=== PATIENT | female | born 1985 | race African-American/Black ===

== ENCOUNTER 2021-02-09 18:24 | Outpatient (REF) | payer OTHER, SELFPAY ==
[2021-02-10 20:53] LABS: COVID-19 RT-PCR UVMMC Result Negative (Negative)
== END 2021-02-09 18:25 | disposition home or self-care (01) ==
LOC: LBN 18:24
PROVIDERS: Visit Provider Nurse Practitioner Family
DX: Z20.822 Contact with and (suspected) exposure to COVID-19 (principal)
CPT/HCPCS: U0003

== ENCOUNTER → 2022-05-17 13:04 | Outpatient (CLI) | payer OTHER, SELFPAY ==
--- NOTE | 2022-05-17 | DI.MRI_ITS ---
Exam(s) MR LOWER JOINT RT WO EXAM: MR LOWER JOINT RT WO CLINICAL HISTORY: RT KNEE PAIN SINCE 2018, WORSENING, M25.561. TECHNIQUE: Multiplanar multisequence MRI was performed. COMPARISON: No exams were available for comparison FINDINGS: BONES: There is no fracture or contusion pattern. JOINTS: Articular cartilage is unremarkable. No effusion is present. TENDONS: Extensor mechanism: Unremarkable. Medial retinaculum: Unremarkable. Lateral retinaculum: Unremarkable. Popliteus: Unremarkable. MUSCLES: Unremarkable. MENISCI: The medial meniscus is unremarkable. The lateral meniscus is unremarkable. SOFT TISSUES: Unremarkable. LIGAMENTS: Anterior Cruciate: Unremarkable. Posterior Cruciate: Unremarkable. Medial Collateral:Unremarkable. Lateral Collateral: Unremarkable. OTHER: IMPRESSION: 1. No evidence of a meniscal or ligament tear. 2. No osseous abnormality. The joint space is well maintained. DATA REPOSITORY:
== END ==
PROVIDERS: PCP Nurse Practitioner Family; Visit Provider Nurse Practitioner Family
DX: M25.561 Pain in right knee (principal)
CPT/HCPCS: 73721

== ENCOUNTER 2022-10-05 15:37 | Outpatient (REF) | payer OTHER, SELFPAY ==
[2022-10-05 20:59] LABS: Abs Immature Grans 0.01 10^3/uL (0.0-0.06); Absolute Basophil Count 0.03 10^3/uL (0.0-0.2); Absolute Eosinophil Count 0.17 10^3/uL (0.0-0.7); Absolute Lymphocyte Count 2.53 10^3/uL (1.2-3.4); Absolute Monocyte Count 0.37 10^3/uL (0.1-0.8); Absolute Neutrophil Count 2.34 10^3/uL (1.2-6.7); Basophils % 0.6; Eosinophils % 3.1; HCT 41.1 % (36.0-46.0); HGB 13.3 g/dL (11.2-15.7); Immature Grans % 0.2; Lymphocytes % 46.4; MCH 27.7 pg (27.0-33.0); MCHC 32.4 % (32.0-36.0); MCV 85 fL (80-95); MPV 11.6 fL (8.0-11.0); Monocytes % 6.8; Neutrophils % 42.9; Platelet Count 267 10^3/uL (130-400); RBC 4.81 10^6/uL (3.93-5.22); RDW 13.6 % (11.7-14.6); RDW-SD 42.5 fL; WBC 5.45 10^3/uL (4.4-10.8)
[2022-10-05 21:18] LABS: ALT 31 U/L (14-59); AST 16 U/L (15-37); Albumin 3.9 g/dL (3.4-5.0); Alkaline Phosphatase 84 U/L (46-116); Anion Gap 6.7 mmol/L (3-11); BUN 13 mg/dL (7-18); Bilirubin, Total 0.4 mg/dL (0.2-1.0); CO2 28.3 mmol/L (21.0-32.0); CREATININE 0.9 mg/dL (0.55-1.02); Calcium 9.2 mg/dL (8.5-10.1); Calculated LDL 86 mg/dL (<100); Chloride 106 mmol/L (98-107); Cholesterol 187 mg/dL (<200); Estimated GFR 84.97 (mL/min/1.73m2); Glucose 90 mg/dL (74-106); HDL Cholesterol 91 mg/dL (40-60); Lipase 47 U/L (16-77); Potassium 4.1 mmol/L (3.5-5.1); Sodium 141 mmol/L (136-145); Total Protein 7.3 g/dL (6.4-8.2); Triglyceride 51 mg/dL (<150)
== END 2022-10-05 15:38 | disposition home or self-care (01) ==
LOC: LBN 15:37
PROVIDERS: PCP Nurse Practitioner Family; Visit Provider Nurse Practitioner Family
DX: R53.83 Other fatigue (principal); R10.0 Acute abdomen; Z13.220 Encounter for screening for lipoid disorders
CPT/HCPCS: 80053; 80061; 83690; 84443; 85025

== ENCOUNTER 2022-10-08 21:35 | Outpatient (REF) | payer OTHER, SELFPAY ==
[2022-10-15 12:35] LABS: Helicobacter pylori Ag, Feces Negative (Negative)
== END 2022-10-08 21:36 | disposition home or self-care (01) ==
LOC: LBN 21:35
PROVIDERS: PCP Nurse Practitioner Family; Visit Provider Nurse Practitioner Family
DX: R10.9 Unspecified abdominal pain (principal)
CPT/HCPCS: 87338

== ENCOUNTER → 2023-01-15 00:51 | Outpatient (CLI) | payer OTHER, SELFPAY ==
--- NOTE | 2023-01-15 07:42 | DI.CT_ITS ---
Exam(s) CT ABDOMEN PELVIS W EXAM: CT ABDOMEN PELVIS W CLINICAL HISTORY: chronic LUQ pain, going on 7 months,r10.9. TECHNIQUE: Imaging Protocol: Axial computed tomography images with coronal and sagittal reformatted images were created and reviewed CONTRAST MATERIAL: Intravenous: Omnipaque 350 Contrast volume:100 ml Oral: yes COMPARISON: US US ABDOMEN from 10/18/2022 FINDINGS: ABDOMEN: Lung Bases: Normal where visualized. Liver: Normal density. No measurable mass. Gallbladder and biliary tract: No radiodense calculus or dilation. Pancreas: Normal density, no abnormal calcifications or inflammatory process. Spleen: Normal. Kidneys: Normal size, contour and axis. No radiodense stones or obstructive uropathy. No suspicious m asses seen. Adrenal glands: No masses seen. Abdominal Aorta: Abdominal portion non-dilated. Soft tissues: Unremarkable. PELVIS: Bladder: No gross wall thickening. No calculi.No focal mass. Bowel: No obstruction. No bowel wall thickening. Appendix normal. Normal quantity of stool. Peritoneal cavity: No ascites, collection or mesenteric inflammatory response. Bones: Unremarkable for age. Reproductive organs: IUD noted. Uterus and ovaries within normal limits. Lymph nodes: Unremarkable. Impression: Unremarkable CT scan of the abdomen and pelvis. RADIATION DOSE DELIVERED: 798.51mGy.cm Total DLP DATA REPOSITORY: All CT scans at this facility are submitted to the National Radiology Data Registry (NRDR) Dose Index Registry (DIR) with the [employer] [place] [employer] (ACR). RADIATION OPTIMIZATION: All CT scans at this facility use at least one of these dose optimization te chniques: automated exposure control; mA and/or kV adjustment per patient size (includes targeted exa ms where dose is matched to clinical indication); or iterative reconstruction.
[2023-01-15] MEDS: Barium Sulfate 2% W/V-Berry Smoothie 450 ML BTL PO ×2 (13:32→13:33)
[2023-01-15] MEDS: Normal Saline Flush 10 ML SYR IVP (15:32)
[2023-01-15] MEDS: Omnipaque 350 MG/ML 500 ML BTL-Imaging package IJ (15:32)
[2023-01-15] MEDS: Normal Saline - Diluent 50 ML VIAL IJ (15:32)
== END ==
PROVIDERS: PCP Nurse Practitioner Family; Visit Provider Nurse Practitioner Family
DX: R10.9 Unspecified abdominal pain (principal)
CPT/HCPCS: 74177

== ENCOUNTER 2023-09-06 18:01 | Outpatient (REF) | payer OTHER, SELFPAY | END 2023-09-06 18:02 | disposition home or self-care (01) | LOC: LBN 18:01 | PROVIDERS: PCP Nurse Practitioner Family; Visit Provider Physician Assistant | DX: N89.8 Other specified noninflammatory disorders of vagina (principal) | CPT/HCPCS: 87480; 87510; 87660 ==

== ENCOUNTER 2023-11-15 09:23 | Outpatient (REF) | payer OTHER, SELFPAY | END 2023-11-15 09:24 | disposition home or self-care (01) | LOC: LBN 09:23 | PROVIDERS: PCP Nurse Practitioner Family; Visit Provider Nurse Practitioner Family | DX: N76.0 Acute vaginitis (principal); M54.9 Dorsalgia, unspecified | CPT/HCPCS: 87480; 87510; 87660 ==

== ENCOUNTER 2024-06-19 15:09 | Outpatient (REF) | payer OTHER, SELFPAY | END 2024-06-19 15:10 | disposition home or self-care (01) | LOC: LBN 15:09 | PROVIDERS: PCP Nurse Practitioner Family; Visit Provider Nurse Practitioner Family | DX: N76.0 Acute vaginitis (principal) | CPT/HCPCS: 87480; 87510; 87660 ==

== ENCOUNTER 2024-07-29 07:07 | Outpatient (CLI) | payer OTHER, SELFPAY ==
[2024-07-29 12:25] LABS: HCT 38.9 % (36.0-46.0); HGB 12.4 g/dL (11.2-15.7); MCH 28.4 pg (27.0-33.0); MCHC 31.9 % (32.0-36.0); MCV 89 fL (80-95); MPV 11.6 fL (8.0-11.0); Platelet Count 238 10^3/uL (130-400); RBC 4.36 10^6/uL (3.93-5.22); RDW 13.4 % (11.7-14.6); WBC 10.82 10^3/uL (4.4-10.8)
[2024-07-29 12:33] LABS: Glucose,1 Hr (Glucola) 102 mg/dL (80-140)
== END 2024-07-29 07:08 | disposition home or self-care (01) ==
PROVIDERS: PCP Nurse Practitioner Family; Referring Provider Obstetrics & Gynecology; Visit Provider Obstetrics & Gynecology
DX: Z34.93 Encounter for supervision of normal pregnancy, unspecified, third trimester (principal)
CPT/HCPCS: 36415; 82950; 85027

== ENCOUNTER 2024-09-11 16:17 | Outpatient (REF) | payer OTHER, SELFPAY | END 2024-09-11 16:18 | disposition home or self-care (01) | LOC: LBN 16:17 | PROVIDERS: PCP Nurse Practitioner Family; Visit Provider Obstetrics & Gynecology | DX: Z34.93 Encounter for supervision of normal pregnancy, unspecified, third trimester (principal); Z3A.36 36 weeks gestation of pregnancy | CPT/HCPCS: 87081 ==

== ENCOUNTER 2024-09-28 15:06 | Outpatient (CLI) | payer OTHER, SELFPAY ==
--- NOTE | 2024-09-28 15:00 | RT.EKG_ITS ---
APPROVED REPORT Exam: Resting ECG Reason for Exam: palpitation Patient Location: O HR:94 bpm ECG Measurements Heart Rate 94 AXIS NC 137 P 56 QRSd 96 QRS 40 QT 340 T 26 QTc 426 Conclusion Sinus tachycardia...rate> 99 PVCs Otherwise normal
== END 2024-09-28 15:07 | disposition home or self-care (01) ==
LOC: DI.CM 15:07
PROVIDERS: PCP Nurse Practitioner Family; Visit Provider Obstetrics & Gynecology
DX: R00.2 Palpitations (principal); R00.0 Tachycardia, unspecified
CPT/HCPCS: 93010

== ENCOUNTER 2024-10-02 16:49 | Outpatient (CLI) | payer OTHER, SELFPAY ==
[2024-10-02 16:58] LABS: Abs Immature Grans 0.08 10^3/uL (0.0-0.06); Absolute Basophil Count 0.01 10^3/uL (0.0-0.2); Absolute Eosinophil Count 0.11 10^3/uL (0.0-0.7); Absolute Lymphocyte Count 1.37 10^3/uL (1.2-3.4); Absolute Monocyte Count 0.65 10^3/uL (0.1-0.8); Absolute Neutrophil Count 4.48 10^3/uL (1.2-6.7); Basophils % 0.1 %; Eosinophils % 1.6 %; HCT 38.3 % (36.0-46.0); HGB 12.4 g/dL (11.2-15.7); Immature Grans % 1.2 %; Lymphocytes % 20.4 %; MCH 28.5 pg (27.0-33.0); MCHC 32.4 % (32.0-36.0); MCV 88 fL (80-95); MPV 11.6 fL (8.0-11.0); Monocytes % 9.7 %; Platelet Count 171 10^3/uL (130-400); RBC 4.35 10^6/uL (3.93-5.22); RDW 14.1 % (11.7-14.6); RDW-SD 45.4 fL
[2024-10-02 18:14] LABS: Diff Comment Agrees w/ Instrument; RBC Morphology Normal
== END 2024-10-02 16:50 | disposition home or self-care (01) ==
LOC: LBO 16:50
PROVIDERS: PCP Nurse Practitioner Family; Visit Provider Obstetrics & Gynecology
DX: Z34.93 Encounter for supervision of normal pregnancy, unspecified, third trimester (principal)
CPT/HCPCS: 36415; 86850; 86900; 86901; 85025

== ENCOUNTER 2024-10-05 06:27 | Inpatient (IN) | payer OTHER, SELFPAY ==
[2024-10-05] VITALS (70 sets, daily range): BP systolic 92–116; BP diastolic 53–66; PULSE 54–94; RESP 14–18; TEMP 35.4–36.7; O2SAT 97–100; BMI 33.4
[2024-10-05] MEDS: Lactated Ringers 1,000 ML 200 ML IV (06:10)
[2024-10-05] MEDS: Azithromycin 500 MG VIAL (06:15)
--- NOTE | 2024-10-05 07:17 | ANES.PREOP_ITS ---
General Info Date of Service Date Performed: 10/05/24 Height: 5 ft 6 in Weight: 93.894 kg Body Mass Index (BMI): 33.4 Surgical Procedure: Operation Date: 10/05/24 07:40 Proposed Procedure Side Surgeon p Repeat Section, Bilateral Salpingectomy/Possible Hysterectomy Vickie Lim DO Actual Procedure Side Surgeon p Repeat Section, Bilateral Salpingectomy/Possible Hysterectomy Not Applicable Vickie Lim DO Meds Allergies and Home Medications Allergies Allergy/AdvReac Type Severity Reaction Status Date / Time No Known Allergies Allergy Verified 10/02/24 15:57 Home Medication ?Medication ?Instructions ?Recorded aspirin 81 mg tablet,delayed 162 mg PO DAILY 06/01/24 release vitamin#30 30 mg iron-10 cap PO .QD 06/01/24 mg iron-folic acid 1 mg-omg3 capsule doxylamine 10 mg-pyridoxine (vit 2 tab PO QHS #180 tabs 06/24/24 B6) 10 mg tablet,delayed release (Diclegis) doxylamine succinate 25 mg tablet 25 mg PO QHS 07/27/24 (Unisom (doxylamine)) pyridoxine (vitamin B6) 100 mg 100 mg PO DAILY 07/27/24 tablet Current Visit Medications: Current Medications Generic Name Dose Route Start Last Admin Trade Name Freq PRN Reason Stop Dose Admin Citric Acid/Sodium Citrate 30 ml 10/05/24 06:00 Sodium Citrate 30 Ml Cup PO PREOP FAY Cefazolin Sodium/Dextrose 2 gm in 50 mls @ 100 mls/hr 10/05/24 05:45 Ancef Duplex IVPB PREOP FAY Azithromycin 500 mg/ Sodium 250 mls @ 250 mls/hr 10/02/24 17:30 Chloride IVPB PREOP FAY Ringer's Solution 1,000 mls @ 200 mls/hr 10/05/24 06:00 10/05/24 06:10 IV 200 mls/hr INFUSION FAY Administration IV Miscellaneous Supplies 1 each 10/05/24 06:00 Iv Access IV DIRECTED FAY Sodium Chloride 0 ml 10/05/24 06:27 Normal Saline Flush 10 Ml Syr IVP PRN PRN Sodium Chloride 0 ml 10/05/24 06:00 Normal Saline Flush 10 Ml Syr IVP BID FAY Sodium Chloride 0 ml 10/05/24 06:00 Normal Saline 10 Ml Vial IJ DIRECTED PRN PFSH Active Problems Active Problems: Problem Status Onset Code Nausea and vomiting during Acute O21.9 Acute Z34.90 Right knee pain Acute M25.561 De Quervain's tenosynovitis, left Acute M65.4 De Quervain's tenosynovitis, right Acute M65.4 Medical History Medical History Asthma Surgical History Surgical History Previous section Tobacco Smoking/Tobacco Use Status: Never Passive smoking exposure: No Alcohol Alcohol Intake: never Substance Use Substance use: Never Substance use type: does not use Prental History History 3 Para 1 Hx # Term Pregnancies 1 Multiple births 0 Hx # Pregnancies 0 Ectopic pregnancies 0 AB induced 1 Hx Number of Living Children 1 AB spontaneous 0 Past Pregnancies Del. Date GA/Weeks # Preg Succ Route Wgt Sex Labor Lgth Anesth esia Location [facility] 10/10/21 41 No Yes 3543.69 g Female UV M Delivery Date: 10/10/21 Last Updated by: Maude Evans IOL for postdates, Germaine PCS @4cm for Cat2 FHT Vital Signs and Lab Results Vital Signs Most Recent Vital Signs in EMR: Most Recent Vital Signs Temp Pulse Resp BP Pulse Ox 36.7 C 94 H 14 112/59 L 98 10/05/24 06:40 10/05/24 06:40 10/05/24 06:40 10/05/24 06:40 10/05/24 06:40 Lab Results Blood Type / Crossmatch: Antibody Screen NEGATIVE 10/02/24 Complete Blood Count: White Blood Count 6.70 10^3/uL (4.4-10.8) 10/02/24 16:41 Red Blood Count 4.35 10^6/uL (3.93-5.22) 10/02/24 16:41 Hemoglobin 12.4 g/dL (11.2-15.7) 10/02/24 16:41 Hematocrit 38.3 % (36.0-46.0) 10/02/24 16:41 Platelet Count 171 10^3/uL (130-400) 10/02/24 16:41 Complete Metabolic Panel: No Data to Display Liver Function Panel: No Data to Display Coagulation Panel: No Data to Display Cardiac Panel: No Data to Display Arterial Blood Gas: No Data to Display Venous Blood Gas: No Data to Display Pancreas Panel: No Data to Display Thyroid Panel: No Data to Display Infectious Disease: No Data to Display Blood Cultures: No Data to Display Toxicology Panel: No Data to Display Panel: No Data to Display Imaging and Studies Imaging and Studies Study information below may be from another EMR and interpreted by another provider. Please see original notes in EMR for more complete details. EKG Summary: 09/28/24 Conclusion Sinus tachycardia...rate> 99 PVCs Otherwise normal Anesthesia Assessment and Plan Anesthesia History Personal History: No History of Anesthesia Complications Family History: No Family History of Anesthesia Complications Exercise Tolerance Exercise Tolerance: Metabolic Equivalents>4 Pertinent Negatives Pertinent Negatives: No Major Cardiovascular Symptoms or Complaints, No Major Pulmonary Symptoms or Complaints and No History of CVA/TIA Cardiac & Pulmonary Exam Cardiac Exam: Normal S1/S2 Heart Sounds Pulmonary Exam: Clear Bilateral Breath Sounds Implantable Cardiac Device Does patient have a Pacemaker or an ICD?: No Airway Exam Known Difficult Airway: No Mallampati Class: 2 Mouth Opening: Normal (> 3cm) Thyromental Distance: Greater than 3 cm Neck Range of Motion: Full ROM Neck Circumference: Normal Teeth Condition: Normal Dentition ASA Classification ASA Score: ASA 2 Emergency Case?: No NPO Status NPO Status: NPO Clears >2 hours, Solids >8 hours Status Status: Confirmed Anesthesia Plan Resuscitation Status: Full Code Anesthesia Technique: Spinal Anesthesia Airway Planned: Natural Airway Pain Management: Intrathecal Analgesia Monitors Used: Standard Monitors
[2024-10-05] MEDS: ceFAZolin 2 GM/50 ML BAG IVPB (07:33)
--- NOTE | 2024-10-05 08:25 | FALL_PTH ---
PATIENT: Ifrah Rodriguez LOC: OBS U#:[id number] AGE/SX: 39/F ROOM: OBS.305 RE10/05/[address]: Vickie Lim DO : 1985 BED: A DIS: 10/07/2024 SPEC #: [id number] RECD: 10/05/24 13:12 STATUS: SOUClarisa REQ #: [id number] JOHN: 10/05/24 08:[address]: Vickie Lim DEPT: Surgical Specimen RECD BY: Karen Syed ENTERED: 10/05/24 13:15 SP TYPE: Fall OTHR DR: Maxine Day Tissues: 1 - FALLOPIAN TUBE (STERILIZATION) 2 - FALLOPIAN TUBE (STERILIZATION) Procedures: GROSS AND MICRO LEVEL 2 Comments: [id number]
[2024-10-05] MEDS: Bupivacaine 0.25% Pres-Free 30 ML VIAL (08:48)
--- NOTE | 2024-10-05 09:04 | W.PM.OBCSECT ---
Date of service: 10/05/24 Time of Service: 09:04 Operative Note Operative Note Delivery Method: Scheduled and Repeat Previous LT Incision: No Number of previous C-Sections: 1 DATE OF PROCEDURE: 10/05/24 PRE-OP DIAGNOSES: Term , undesired fertility PROCEDURE: Repeat section, Bilateral salpingectomy SURGEON: Vickie Lim Assisting Surgeon: Marina Eric Anesthesia: local and spinal Estimated blood loss (mL): 300 Pathology: other (1. Left fallopian tube 2. Right fallopian tube) Complications: None Patient was transported to: floor Patient's condition: stable Indications: Prior , undesired fertility Findings: Small amount of adhesions to the left adnexa. Normal-appearing fallopian tubes, ovaries, uterus. Delivery of a viable male infant with Apgars 9 and 9. Procedure Description: After full informed consent was obtained, patient taken to the operative suite with an IV running. She is placed in the seated position and spinal anesthesia was administered. Patient had Ancef, 2 g and Zithromax, 500 mg for surgical site infection prophylaxis. She had DVT prophylaxis with pneumatic compression stockings. She is placed in the dorsal supine position and heart tones auscultated at 135. Vaginal preparation was performed and Subramanian catheter was inserted. Abdominal preparation was then performed and the patient was draped in the usual fashion. Anesthesia was tested noted be adequate. A timeout was held. Previous incision was infiltrated with Deven percent Marcaine. At this point, Pfannenstiel skin incision was made through the previous incision and carried on underlying fascia. Fascia was incised in the midline and extended laterally. The fascia was split for the rectus muscle rectus muscle identified and identified. Rectus muscles were in the midline. The peritoneum was then identified tented up and entered sharply and the peritoneal incision extended superiorly and inferiorly. At this point the bladder blade was inserted and the vesicouterine peritoneum identified and the bladder flap created. The bladder blade was reinserted and a low transverse uterine incision was made with a scalpel and extended bluntly laterally. The vertex was delivered without difficulty. Shoulders followed with ease. Three-vessel cord was noted after appropriate delayed clamping. Cord was then transected and baby was handed off to the waiting lead assistant manager. At this point cord blood sample was obtained and the placenta was manually expressed from the uterus. The uterus is then exteriorized and cleared of all clot and debris. Uterine incision was closed in a 2 layer closure of 0 Monocryl with the first layer being running locked, second being imbricating. Attention was then turned to the left fallopian tube where there were noted to be adhesions of the adnexa to the abdominal wall, near to the rectosigmoid colon. This was meticulously transected away. The fallopian tube was then elevated and cautery transected for removal. The pedicle was noted to be hemostatic. Attention was turned to the right fallopian tube and in a similar fashion, tube elevated and cautery transected for removal. Both pedicles were noted to be hemostatic. The uterus then returned to the abdomen and the abdomen irrigated with copious months of normal saline. The uterine incision again reinspected and noted to be hemostatic. 2 pedicles were inspected and noted to be hemostatic. At this point the fascial incision was closed using 0 Vicryl suture in running fashion. Subcutaneous tissue irrigated with copious months of normal saline and the subcu space closed with 3-0 Vicryl suture in a simple interrupted fashion. Skin edge was then reapproximated with 4-0 undyed Monocryl in a subcuticular fashion. Steri-Strips and a sterile dressing was placed. Patient was then taken to the [facility] for recovery. Pathology: 1. Left fallopian tube 2. Right fallopian tube Complications: None apparent Fluids: Crystalloid per anesthesia EBL: 300 mL
--- NOTE | 2024-10-05 09:28 | W.OBNST ---
Date of service: 10/05/24 Time of Service: 09:28 NST Evaluation Reason for NST Reasons for Nonstress Test: OTHER, SEE COMMENT Reason for NST Other: Pre-op Gestational Age Gestational Age in Weeks and Days: 39 Weeks and 3Days Test and Monitor Explained Test/Monitor Explained: Test Explained and Monitor Explained NST Information Date on Monitor: 10/05/24 Time on Monitor: 06:25 Date off Monitor: 10/05/24 Time off Monitor: 07:00 Total Time on Monitor: 35 NST Interventions: None NST Evaluation Patient States Movement: Present FHR Baseline: 125 Variability: Moderate 6-25 bpm Accelerations: 15x15 Decelerations: None NST Results: Reactive Note Ultrasound Done: N/A. NST Note Note: Category 1, reactive NST NST Reviewed and Verified by: Vickie Lim
--- NOTE | 2024-10-05 14:25 | W.ANESPOSTOP ---
Postoperative Evaluation Date, Time and Location Date Performed: 10/05/24 Time Performed: 13:18 Patient Location: Obstetrics Vital Signs Most Recent Imported Vital Signs: Most Recent Vital Signs Temp Pulse Resp BP Pulse Ox 35.9 C L 61 15 103/53 L 100 10/05/24 12:31 10/05/24 13:18 10/05/24 11:06 10/05/24 11:06 10/05/24 13:18 Assessment Mental Status: Awake (Alert & Oriented to Patient Baseline) Airway and Respiratory Function: Patent airway with normal (patient baseline) respiratory exam Cardiovascular Function: Hemodynamically Stable Hydration Status: Adequately Hydrated Nausea & Vomiting: No Nausea or Vomiting Pain: Pain is tolerable per patient Peripheral Nerve Block: Patient did not receive a nerve block
[2024-10-05] MEDS: Ibuprofen 600 MG TAB PO ×2 (15:41→21:09)
[2024-10-05] MEDS: Acetaminophen 325 MG TAB 650 MG PO ×2 (15:42→21:08)
--- NOTE | 2024-10-05 21:06 | W.PM.OBPNV1 ---
Date of service: 10/05/24 Time of Service: 21:07 Assessment and Plan Assessment and plan (1) S/P section: Status: Acute Assessment and plan: 39-year-old G2 now P2002 (PLTCS x2) status post repeat low-transverse section with bilateral salpingectomy performed 10/05/24 AM ? Rh+/rubella immune/VZV immune ? Meeting all milestones ? Lochia appropriate ? Subramanian to be removed ? Continue regular ambulation ? Breast-feeding without issue ? Contraception: BTL ? Patient to be counseled on addictive potential of narcotics ? Discharge: Pending Subjective Subjective Narrative: Patient reports feeling well. She is found resting comfortably in her bed and in good spirits. She is ambulated. Her pain is well-controlled. Her Subramanian is still in. She has tolerated a regular diet. She is breast-feeding. Her lochia is appropriate. Exam Physical Exam Vital signs: Temp Pulse Resp BP Pulse Ox 97.3 F L 80 16 105/64 100 10/05/24 20:32 10/05/24 20:32 10/05/24 20:35 10/05/24 20:32 10/05/24 20:32 Constitutional Constitutional: no acute distress HEENT Exam HEENT Exam: Normal Detailed Respiratory Exam Comments: unlabored breathing Abdominal Exam Comments: soft, non-distended, appropriately tender. Incision is C/D/I. Fundal Exam Comment: fundus is firm and below the umbilicus Extremities Exam Comment: +1 lower extremity edema noted equally and bilaterally, consistent with state. Detailed Skin Exam Comments: no overt skin pathology Detailed Neurological Exam Neurological: Present alert and oriented X3 DetailedPsychiatric Exam Psych Exam: Normal Affect, Cooperative, Good Insight and Good Judgement
[2024-10-06] VITALS (7 sets, daily range): BP systolic 98–115; BP diastolic 65–75; PULSE 56–89; RESP 16–18; TEMP 36.2–36.7; O2SAT 99–100
[2024-10-06] MEDS: Ibuprofen 600 MG TAB PO ×4 (02:46→21:15)
[2024-10-06] MEDS: Acetaminophen 325 MG TAB 650 MG PO ×4 (02:46→21:15)
--- NOTE | 2024-10-06 07:38 | W.PM.OBPNV1 ---
Date of service: 10/06/24 Time of Service: 07:38 Assessment and Plan Assessment and plan (1) S/P section: Status: Acute Assessment and plan: Postop day #1 status post repeat low-transverse section with bilateral salpingectomy. CBC is pending. Ambulate, oral pain medication. Anticipate discharge home 10/07/2024 Subjective Subjective Interval history: Patient seen and examined this morning. Doing well. Rested well through the night. Breast-feeding without difficulty. Pain is well-controlled. Patient's Mood: Appropriate baby status: Doing well, Nursing well and Strong Bonding Observed [place] feeding status: Exclusively breast feeding Exam Physical Exam Vital signs: Temp Pulse Resp BP Pulse Ox 97.7 F 89 16 104/65 99 10/06/24 02:47 10/06/24 02:47 10/06/24 02:48 10/06/24 02:47 10/06/24 02:47 Vital Signs Reviewed: Yes Constitutional Constitutional: no acute distress HEENT Exam HEENT Exam: Normal Neck Exam Neck Exam: Normal Respiratory Exam Respiratory Exam: Normal Cardiovascular Exam Cardiovascular Exam: Normal Abdominal Exam Abdomen: Tender Comments: Incision dressed Extremities Exam Extremity Exam: Normal; negative Calf Tenderness or Edema Skin Exam Skin Exam: Normal Neurological Exam Neurological Exam: Normal
[2024-10-06 08:51] LABS: Abs Immature Grans 0.11 10^3/uL (0.0-0.06); Absolute Basophil Count 0.04 10^3/uL (0.0-0.2); Absolute Eosinophil Count 0.16 10^3/uL (0.0-0.7); Absolute Lymphocyte Count 1.54 10^3/uL (1.2-3.4); Absolute Monocyte Count 0.42 10^3/uL (0.1-0.8); Absolute Neutrophil Count 6.83 10^3/uL (1.2-6.7); Basophils % 0.4 %; Eosinophils % 1.8 %; HCT 39.2 % (36.0-46.0); HGB 12.6 g/dL (11.2-15.7); Immature Grans % 1.2 %; Lymphocytes % 16.9 %; MCH 28.6 pg (27.0-33.0); MCHC 32.1 % (32.0-36.0); MCV 89 fL (80-95); MPV 11.3 fL (8.0-11.0); Monocytes % 4.6 %; Neutrophils % 75.1 %; Platelet Count 163 10^3/uL (130-400); RBC 4.41 10^6/uL (3.93-5.22); RDW 14.1 % (11.7-14.6); RDW-SD 45.7 fL
[2024-10-06] MEDS: Docusate Sodium 100 MG CAP PO (21:16)
[2024-10-07] MEDS: Acetaminophen 325 MG TAB 650 MG PO ×2 (03:03→08:40)
[2024-10-07] MEDS: Ibuprofen 600 MG TAB PO ×2 (03:03→08:41)
[2024-10-07 03:13] VITALS: BP 122/66; PULSE 72; RESP 16; TEMP 36.3; O2SAT 100
[2024-10-07 05:49] VITALS: BP 118/78; PULSE 84; TEMP 36.7; O2SAT 98
[2024-10-07 07:46] VITALS: BP 115/71; PULSE 72; RESP 16; TEMP 36.4
--- NOTE | 2024-10-07 09:05 | W.PM.OBPNV1 ---
Date of service: 10/07/24 Time of Service: 09:05 Assessment and Plan Assessment and plan (1) S/P section: Status: Acute Assessment and plan: Postop day 2 status post repeat delivery with bilateral salpingectomy. Doing well. Discharge home today. Follow-up in 1, 2, and 6 weeks. All questions answered. Subjective Subjective Interval history: Patient seen this morning postop day 2 status post repeat low-transverse section with bilateral salpingectomy. She is doing well. No issues or concerns today. She is anticipating discharge home. [place] male infant is breast-feeding without difficulty. Declined circumcision. baby status: Doing well, Nursing well and Strong Bonding Observed Exam Physical Exam Vital signs: Temp Pulse Resp BP Pulse Ox 97.5 F L 72 16 115/71 98 10/07/24 07:46 10/07/24 07:46 10/07/24 07:46 10/07/24 07:46 10/07/24 05:49 Vital Signs Reviewed: Yes Constitutional Constitutional: no acute distress HEENT Exam HEENT Exam: Normal Neck Exam Neck Exam: Normal Respiratory Exam Respiratory Exam: Normal Cardiovascular Exam Cardiovascular Exam: Normal Abdominal Exam Comments: Soft, nontender, Mepilex dressing in place. No tenderness, drainage, erythema noted. Fundal Exam Fundus: Below Umbilicus and Firm Extremities Exam Extremity Exam: Normal; negative Calf Tenderness Skin Exam Skin Exam: Normal Neurological Exam Neurological Exam: Normal Psychiatric Exam Psychiatric Exam: Normal Results Hemoglobin/Hematocrit: Hgb 12.6 g/dL (11.2-15.7) 10/06/24 08:42 Hct 39.2 % (36.0-46.0) 10/06/24 08:42 Abnormal Lab Findings: Abnormal Labs 10/06/24 08:42 MPV 11.3 H Absolute Neutrophils 6.83 H
--- NOTE | 2024-10-07 09:10 | DSE_ITS ---
Date of service: 10/07/24 Time of Service: 09:10 DS: Diagnosis Discharge Diagnosis (1) S/P section: Status: Acute Asessment and Plan: Patient is 2 days status post repeat low-transverse section with intraoperative bilateral salpingectomy for permanent sterilization. She had an uncomplicated and an uncomplicated postoperative course. She is discharged home for follow-up in 1, 2, and 6 weeks. Precautions are given. Discharge Plan Disposition Patient Disposition: Home Condition: Good Discharge Details Reason For Visit: Delivery Admit Date/Time: 10/05/24 06:27 Admit Provider: Vickie Lim Attending Provider: Vickie Lim Primary Care Provider: Maxine Day Hospital Course Hospital Course: Patient presented to the [facility] 10/05/2024 for her scheduled repeat . She was also scheduled for salpingectomy at the time of her procedure. She had an uncomplicated with sterilization. She had uncomplicated and postoperative course. She is discharged home postoperative day #2 status post repeat with bilateral salpingectomy. She is ambulating, tolerating regular diet and oral pain medication with stable vital signs. She will be seen in the office in 1, 2, and 6 weeks. Her male infant is doing well, nursing without difficulty. Home Meds and New Rx's Prescriptions: New ibuprofen 600 mg tablet 600 mg PO TID PRNQty: 60 1RF oxycodone-acetaminophen [Percocet] 5-325 mg tablet 1 tab PO Q8H PRNQty: 10 0RF docusate sodium [Colace] 100 mg capsule 100 mg PO BID PRNQty: 30 1RF No Action pyridoxine (vitamin B6) 100 mg tablet 100 mg PO DAILY Unisom (doxylamine) 25 mg tablet 25 mg PO QHS PNV #[id number] acid-omega3 30 mg iron-10 mg iron-1 mg capsule 1 cap PO .QD Discharge Instructions Activity:: Pelvic REst Equipment/Supplies:: No Equipment Needed Diet:: As Tolerated Discharge Orders Discharge Orders: Discharge Order (Routine); Ordered 10/07/24 Ordered By: Vickie Lim OB:DS Summary Contraception Discussed Contraception Discussed: Yes Contraceptive Plan: Tubal Ligation (Performed intraoperatively), Infant Gender-Baby A: Male weight: 7 lb 2.993 oz Status at Discharge Functional status at discharge: independent ambulation Overall status at discharge: patient is back to baseline Mental Status: mental status grossly normal Speech and Movement: speech and movement normal Mood: congruent mood Affect: normal affect Quality:SDOH Health Related Social Needs: No Data to Display Exam Physical Exam Vital signs: Temp Pulse Resp BP Pulse Ox 97.5 F L 72 16 115/71 98 10/07/24 07:46 10/07/24 07:46 10/07/24 07:46 10/07/24 07:46 10/07/24 05:49 Constitutional Comments: See physical exam progress note dated H All Active Problems S/P section (Acute) Repeat low-transverse section with bilateral salpingectomy 10/05/2024, male infant [place] Nausea and vomiting during (Acute) (Acute) Right knee pain (Acute) De Quervain's tenosynovitis, left (Acute) De Quervain's tenosynovitis, right (Acute) Depo-medrol injection: 01/04/22 Medical History Asthma Surgical History Previous section Family History Other Breast cancer Diabetes Hyperlipidemia Hypertension Social History Smoking/Tobacco Use Status: Never Smoking risk assessment performed?: Yes Alcohol Intake: never Drug use: Never Substance use type: does not use Housing: house In current or past relationships, have you been: other Do you feel safe at home: Yes Do you feel safe in your relationship?: Yes History History 3 Para 1 Hx # Term Pregnancies 1 Multiple births 0 Hx # Pregnancies 0 Ectopic pregnancies 0 AB induced 1 Hx Number of Living Children 1 AB spontaneous 0 Past Pregnancies Del. Date GA/Weeks # Preg Succ Route Wgt Sex Labor Lgth Anesth esia Location Prov Complic 10/10/21 41 No Yes 7 lb 13 oz Female U VM Delivery Date: 10/10/21 Last Updated by: Maude Evans IOL for postdates, Germaine PCS @4cm for Cat2 FHT DS: Data Vitals/I&O Vitals and I&O: Vital Signs Temperature 97.5 F L 10/07/24 07:46 Temperature Source Forehead 10/07/24 07:46 Pulse 72 10/07/24 07:46 Pulse Rhythm Regular 10/07/24 07:46 Respiratory Rate 16 10/07/24 07:46 Respiratory Depth Normal 10/06/24 19:30 Blood Pressure 115/71 10/07/24 07:46 Blood Pressure Mean 85 10/07/24 07:46 Pulse Oximetry 98 10/07/24 05:49 Pain Level 2 10/07/24 08:40 Comment Pt states that she does not want her vital signs taken until 0300 when her pain medication is due. 10/07/24 01:25 Intake & Output 10/06/24 10/06/24 10/07/24 11:59 23:59 11:59 Intake Total 800 / 800 Output Total 1900 / 3450 1550 / 3450 Balance -1100 / -2650 -1550 / -2650 Intake: Oral 800 / 800 Output: Urine 1900 / 3450 1550 / 3450 Other: Urine Color Yellow Yellow
== END 2024-10-07 10:45 | disposition home or self-care (01) | DRG 783 ==
PROVIDERS: Admitting Provider Obstetrics & Gynecology; PCP Nurse Practitioner Family; Visit Provider Obstetrics & Gynecology
PROC: 10D00Z1 Extraction of Products of Conception, Low, Open Approach (ICD-10-PCS; CPT 59514; principal; 2024-10-05 07:30)
DX: O34.211 Maternal care for low transverse scar from previous cesarean delivery (principal); O99.42 Diseases of the circulatory system complicating childbirth; Z37.0 Single live birth; Z3A.39 39 weeks gestation of pregnancy; Z30.2 Encounter for sterilization; I49.3 Ventricular premature depolarization; J45.909 Unspecified asthma, uncomplicated; O99.52 Diseases of the respiratory system complicating childbirth
CPT/HCPCS: 59514; 58700; 59025; 36415; 85025; 88302; J0456; J0665; J0690; J1885; J2274; J2371; J2405; J3010